=== PATIENT | male | born 1980 | race African-American/Black ===

== ENCOUNTER 2016-09-21 15:23 | Emergency (ER) | payer SELFPAY ==
--- NOTE | 2016-09-22 09:07 | NUR ---
Received SAD person referral. Pt was EPC'd to [facility] in [place].
--- NOTE | 2016-09-23 11:08 | ER ---
ADMIT: 09/21/2016 RM/LOC: ER [facility] MR#: [id number] [id number] IRINA CLINTON [address] [place] [address] Emergency Room Report SEX: M AGE: 36 : 1980 DATE: 09/21/2016 ADDENDUM: This patient comes to the ER because he had a suicide attempt today. He states he was fighting with his girlfriend, and he threatened to blow up the house by turning the gas stove on. She ran outside, called the police. He did admit to wanting to commit suicide and recently has had been using meth and marijuana. On physical exam, he is alert and cooperative. He had a normal exam. His CBC and CMP were normal. He was positive for THC and methamphetamine. DIAGNOSIS: Suicidal attempt with suicidal ideation. The patient was brought in by police officers, and he will be EPC'd to [facility]. Please see my T-sheet. JENNIE Bennett / Satish Thomas MD / modl JOB #: [id number] CC: Satish Thomas MD, Attending Physician Delisa Parkinson MD, Family Physician
== END 2016-09-21 19:15 | disposition short-term general hospital (02) ==
LOC: ER 15:23
DX: T14.91 Suicide attempt (principal); F15.10 Other stimulant abuse, uncomplicated; F17.210 Nicotine dependence, cigarettes, uncomplicated; X83.8XXA Intentional self-harm by other specified means, initial encounter; Y92.009 Unspecified place in unspecified non-institutional (private) residence as the place of occurrence of the external cause